=== PATIENT | female | born 1950 | race Caucasian/White ===

== ENCOUNTER → 2018-07-01 | Outpatient (CLI) | payer OTHER, MEDICARE ==
[~2018-07-01] MED LIST: GADOBUTROL 10 ML VIAL IVP ONE
== END ==
LOC: FIMAGING 08:19
PROVIDERS: ATTEND Physician Assistant
DX: G93.9 Disorder of brain, unspecified (principal); J32.2 Chronic ethmoidal sinusitis; J32.0 Chronic maxillary sinusitis; J32.1 Chronic frontal sinusitis; Z98.890 Other specified postprocedural states
CPT/HCPCS: 70553; A9585; 82565-PO